=== PATIENT | female | born 1935 | race Caucasian/White ===

== ENCOUNTER 2018-05-03 20:57 | Emergency (ER) | payer MEDICARE, BC ==
[2018-05-03] MEDS ORDERED: Sodium Chloride 0.9% 1,000 ML IV ONE (22:06)
[2018-05-03] MEDS ORDERED: Insulin Regular, Human 100 Units/ML 3 ML Vial IV STA (22:07)
--- NOTE | 2018-05-03 22:13 | EDM.PDOC ---
ED HPI GENERAL MEDICAL PROBLEM - General Chief Complaint: Diabetic Complaint Stated Complaint: BLOOD SUGAR 470 Time Seen by Provider: 05/03/18 21:37 Source of Information: Reports: Patient, Family (2 daughters) History Limitations: Reports: No Limitations - History of Present Illness INITIAL COMMENTS - FREE TEXT/NARRATIVE: The patient states that she is an insulin requiring type II diabetic, and that she ordinarily checks her blood sugar every morning, with a typical blood sugar around 150. She states that she has not had a good diet since February, when her became ill, and that she stopped checking her blood sugars about 2 weeks ago, when he was moved into a ch[facility]. She checked her blood sugar yesterday morning, and found it to be 191, then check it again this evening, finding it to be 470. The patient denies any recent illness, including fever, chills, nausea, vomiting, constipation, diarrhea, abdominal pain, chest pain, palpitations, sore throat, or urinary symptoms. The patient states that she has a chronic cough due to her levothyroxine (actual fact, it is likely due to her benazepril), but that her cough is no worse than usual. The patient has had episodes of hyperglycemia in the past, but no prior DKA. She states that her Lantus insulin was changed to a different long-acting insulin (she does not recall the name) on January 06, but that her blood sugars were still within her normal range up until about 2 weeks ago, when she stopped checking them. The patient's PCP is Dr. Britt. - Related Data Allergies Allergy/AdvReac Type Severity Reaction Status Date / Time No Known Allergies Allergy Verified 05/03/18 21:04 Home Meds: Home Meds Aspirin 81 mg PO DAILY 05/03/18 [History] Benazepril [Lotensin] 20 mg PO DAILY 05/03/18 [History] Calcium Carb & Citrate/Vit D3 [Calcium + D3 ER Tablet] 1 tab PO DAILY 05/03/18 [ History] Hydrochlorothiazide 12.5 mg PO DAILY 05/03/18 [History] Imipramine HCl [Imipramine] 10 mg PO DAILY 05/03/18 [History] Insulin Aspart [NovoLOG] 7 unit SQ ACBREAKFAST 05/03/18 [History] Insulin Aspart [NovoLOG] 10 unit SQ BEDTIME 05/03/18 [History] Insulin Glarg,Human.Rec.Analog [Lantus] 25 unit SUBCUT DAILY 05/03/18 [History] Levothyroxine [Synthroid] 88 mcg PO DAILY 05/03/18 [History] Pravastatin [Pravachol] 20 mg PO DAILY 05/03/18 [History] amLODIPine Besylate [Amlodipine Besylate] 7.5 mg PO DAILY 05/03/18 [History] Past Medical History Cardiovascular History: Reports: High Cholesterol, Hypertension Genitourinary History: Reports: Chronic Renal Insuffiency, Urinary Incontinence (spastic bladder) Musculoskeletal History: Reports: Arthritis, Fracture (left leg) Endocrine/Metabolic History: Reports: Diabetes, Type II, Hypothyroidism - Past Surgical History Female Surgical History: Reports: Hysterectomy Social & Family History - Tobacco Use Smoking Status *Q: Never Smoker - Alcohol Use Alcohol Use History: Yes Alcohol Use Frequency: Rarely - Recreational Drug Use Recreational Drug Use: No - Living Situation & Occupation Living situation: Reports: , Alone Occupation: Retired ED ROS GENERAL - Review of Systems Review Of Systems: ROS reveals no pertinent complaints other than HPI. ED EXAM GENERAL NO PERIP PULSE - Physical Exam Exam: See Below Exam Limited By: No Limitations General Appearance: Alert, WD/WN, No Apparent Distress Eye Exam: Bilateral Eye: Normal Inspection Ears: Normal External Exam, Hearing Grossly Normal Nose: Normal Inspection, No Blood Throat/Mouth: Normal Inspection, Normal Lips, Normal Voice, No Airway Compromise Head: Atraumatic, Normocephalic, Other (Alopecia) Neck: Normal Inspection, Full Range of Motion Respiratory/Chest: No Respiratory Distress, Lungs Clear, Normal Breath Sounds, No Accessory Muscle Use Cardiovascular: Normal Peripheral Pulses, Regular Rate, Rhythm, No Gallop, No JVD, No Murmur, No Rub GI/Abdominal: Normal Bowel Sounds, Soft, Non-Tender, No Organomegaly, No Distention, No Abnormal Bruit, No Mass (Female) Exam: Deferred Rectal (Female) Exam: Deferred Back Exam: Normal Inspection, Full Range of Motion, NT Extremities: Normal Inspection, Normal Range of Motion, Normal Capillary Refill , Other (Trace to 1+ bilateral pretibial edema) Neurological: Alert, Oriented, Normal Cognition, No Motor/Sensory Deficits Psychiatric: Normal Affect Skin Exam: Warm, Dry, Intact, Normal Color, No Rash Course - Vital Signs Last Recorded V/S: Last Vital Signs Temp 36.4 C 05/03/18 21:01 Pulse 87 05/03/18 21:01 Resp 16 05/03/18 21:01 BP 165/73 H 05/03/18 21:01 Pulse Ox 98 05/03/18 21:01 Orthostatic Blood Pressure [ 150/66 Supine] Orthostatic Blood Pressure [ 163/68 Sitting] Orthostatic Blood Pressure [ 164/65 Standing] - Orders/Labs/Meds Orders: Active Orders 24 hr Category Date Time Status Accu Check [Blood Glucose Check, Bedside] [RC] ONETIME Care 05/03/18 22:17 Active Accu Check [Blood Glucose Check, Bedside] [RC] ONETIME Care 05/03/18 23:39 Active EKG Documentation Completion [RC] STAT Care 05/03/18 22:05 Active Insert Urinary Catheter [OM.PC] Q24H Care 05/03/18 23:00 Ordered Orthostatic Vital Signs [RC] STAT Care 05/03/18 22:05 Active Orthostatic Vital Signs [RC] STAT Care 05/03/18 23:01 Active Urinary Catheter Assessment [RC] ASDIRECTED Care 05/03/18 22:59 Active Chest 2V [CR] Stat Exams 05/03/18 22:04 Taken CULTURE URINE [RM] Stat Lab 05/03/18 22:52 Received UA W/MICROSCOPIC [URIN] Stat Lab 05/03/18 22:52 Ordered Labs: Laboratory Tests 05/03/18 05/03/18 05/03/18 Range/Units 22:15 22:15 22:15 WBC 6.15 (3.98-10.04) K/mm3 RBC 4.19 (3.98-5.22) M/mm3 Hgb 12.2 (11.2-15.7) gm/L Hct 37.3 (34.1-44.9) % MCV 89.0 (79.4-94.8) fl MCH 29.1 (25.6-32.2) pg MCHC 32.7 (32.2-35.5) g/dl RDW Std Deviation 43.9 (36.4-46.3) fL Plt Count 194 (182-369) K/mm3 MPV 12.0 (9.4-12.3) fl Neutrophils % (Manual) 64 H (40-60) % Band Neutrophils % 0 (0-10) % Lymphocytes % (Manual) 23 (20-40) % Atypical Lymphs % 0 % Monocytes % (Manual) 10 (2-10) % Eosinophils % (Manual) 2 (0.7-5.8) % Basophils % (Manual) 1 (0.1-1.2) Platelet Estimate Adequate Plt Morphology Comment Normal RBC Morph Comment Normal Sodium 133 L (136-145) mEq/L Potassium 4.5 (3.5-5.1) mEq/L Chloride 98 (98-107) mEq/L Carbon Dioxide 24 (21-32) mEq/L Anion Gap 15.5 H (5-15) BUN 48 H (7-18) mg/dL Creatinine 2.0 H (0.55-1.02) mg/dL Est Cr Clr Drug Dosing 19.60 mL/min Estimated GFR (MDRD) 24 (>60) mL/min BUN/Creatinine Ratio 24.0 H (14-18) Glucose 448 H (83-115) mg/dL POC Glucose (83-110) mg/dL Lactic Acid 1.9 (0.4-2.0) mmol/L Calcium 9.8 (8.5-10.1) mg/dL Magnesium 2.1 (1.8-2.4) mg/dl Total Bilirubin 0.7 (0.2-1.0) mg/dL AST 18 (15-37) U/L ALT 26 (14-59) U/L Alkaline Phosphatase 62 (46-116) U/L Total Protein 7.7 (6.4-8.2) g/dl Albumin 3.9 (3.4-5.0) g/dl Globulin 3.8 gm/dL Albumin/Globulin Ratio 1.0 (1-2) Urine Color (Yellow) Urine Appearance (Clear) Urine pH (5.0-8.0) Ur Specific [place] (1.005-1.030) Urine Protein (Negative) Urine Glucose (UA) (Negative) Urine Ketones (Negative) Urine Occult Blood (Negative) Urine Nitrite (Negative) Urine Bilirubin (Negative) Urine Urobilinogen (0.2-1.0) Ur Leukocyte Esterase (Negative) Urine RBC (0-5) /hpf Urine WBC (0-5) /hpf Urine WBC Clumps (NOT SEEN) /hpf Ur Epithelial Cells (0-5) /hpf Urine Bacteria (FEW) /hpf Urine Mucus (FEW) /hpf Ketones (0.0-0.3) mM 05/03/18 05/03/18 05/03/18 Range/Units 22:15 22:52 23:43 WBC (3.98-10.04) K/mm3 RBC (3.98-5.22) M/mm3 Hgb (11.2-15.7) gm/L Hct (34.1-44.9) % MCV (79.4-94.8) fl MCH (25.6-32.2) pg MCHC (32.2-35.5) g/dl RDW Std Deviation (36.4-46.3) fL Plt Count (182-369) K/mm3 MPV (9.4-12.3) fl Neutrophils % (Manual) (40-60) % Band Neutrophils % (0-10) % Lymphocytes % (Manual) (20-40) % Atypical Lymphs % % Monocytes % (Manual) (2-10) % Eosinophils % (Manual) (0.7-5.8) % Basophils % (Manual) (0.1-1.2) Platelet Estimate Plt Morphology Comment RBC Morph Comment Sodium (136-145) mEq/L Potassium (3.5-5.1) mEq/L Chloride (98-107) mEq/L Carbon Dioxide (21-32) mEq/L Anion Gap (5-15) BUN (7-18) mg/dL Creatinine (0.55-1.02) mg/dL Est Cr Clr Drug Dosing mL/min Estimated GFR (MDRD) (>60) mL/min BUN/Creatinine Ratio (14-18) Glucose (83-115) mg/dL POC Glucose 148 H (83-110) mg/dL Lactic Acid (0.4-2.0) mmol/L Calcium (8.5-10.1) mg/dL Magnesium (1.8-2.4) mg/dl Total Bilirubin (0.2-1.0) mg/dL AST (15-37) U/L ALT (14-59) U/L Alkaline Phosphatase (46-116) U/L Total Protein (6.4-8.2) g/dl Albumin (3.4-5.0) g/dl Globulin gm/dL Albumin/Globulin Ratio (1-2) Urine Color Yellow (Yellow) Urine Appearance Clear (Clear) Urine pH 6.0 (5.0-8.0) Ur Specific [place] 1.010 (1.005-1.030) Urine Protein Negative (Negative) Urine Glucose (UA) 2+ H (Negative) Urine Ketones Negative (Negative) Urine Occult Blood Negative (Negative) Urine Nitrite Negative (Negative) Urine Bilirubin Negative (Negative) Urine Urobilinogen 1.0 (0.2-1.0) Ur Leukocyte Esterase Trace H (Negative) Urine RBC 0-5 (0-5) /hpf Urine WBC 5-10 H (0-5) /hpf Urine WBC Clumps Few (NOT SEEN) /hpf Ur Epithelial Cells 5-10 H (0-5) /hpf Urine Bacteria Few (FEW) /hpf Urine Mucus Not seen (FEW) /hpf Ketones 0.15 (0.0-0.3) mM Meds: Medications Discontinued Medications Generic Name Dose Route Start Last Admin Trade Name Freq PRN Reason Stop Dose Admin Sodium Chloride 1,000 mls @ 999 mls/hr 05/03/18 22:06 05/03/18 22:20 Normal Saline IV 05/03/18 23:06 999 mls/hr ONETIME ONE Administration Insulin Human Regular 10 unit 05/03/18 22:07 05/03/18 22:20 Humulin R IV 05/03/18 22:08 10 units ONETIME STA Administration - Re-Assessments/Exams Free Text/Narrative Re-Assessment/Exam: 05/03/18 22:11 The patient is orthostatic. 1 L of NS was already ordered wide open. We will repeat orthostatics once it has infused. 05/03/18 22:45 2 view chest radiograph appears to be grossly normal. Cardiac silhouette is within normal limits. No pulmonary vascular congestion. No pleural effusions. No focal infiltrate. No pneumothorax. Brassiere fasteners incidentally noted. Formal read per the Radiologist pending. 05/03/18 23:39 Following 1 L NS, the patient is no longer orthostatic. She was given 10 units regular insulin about an hour ago - we will recheck an Accu-Chek. 05/04/18 00:09 Repeat Accu-Chek is 148. The patient's urinalysis is nitrate negative, trace leukocyte esterase, 5-10 WBCs, and few bacteria. This is minimally consistent with a UTI. I have ordered a urine culture. The question is whether or not to treat for UTI. Current guidelines do not recommend routine treatment of asymptomatic bacteriuria, however, with the patient's hyperglycemia, one wonders whether or not that is the cause. I don't believe so, and am therefore not recommending antibiotics at this time. Leave the patient may safely be discharged home. I'm going to recommend that she start checking her blood sugar at least once a day, and follow-up with her PCP, Dr. Britt, this week. 05/04/18 00:17 The above plan was discussed with the patient and her 2 daughters. They are all in agreement. Departure - Departure Time of Disposition: 00:18 Disposition: Home, Self-Care 01 Condition: Good Clinical Impression: Intravascular volume depletion, Hyperglycemia due to type 2 diabetes mellitus, Bacteriuria with pyuria, Chronic kidney disease - Discharge Information Referrals: Yusuf Bernabe MD [Primary Care Provider] - Forms: ED Department Discharge Additional Instructions: You were seen in the emergency room for a blood sugar of 470 at home. Workup in the ER included blood work, a urinalysis, positional blood pressure checks, a chest x-ray, and an ECG. Your workup found that you were intravascularly depleted, likely because of your high blood sugar. You were given IV fluid in the ER, and your numbers normalized. You were given 10 units of regular insulin in the ER, and your blood sugar dropped from 448 to 148. Your urinalysis showed a small number of white blood cells and a few bacteria. A urine culture was sent, however, antibiotics were not recommended at this time. Your chemistry panel showed that you have compromised kidney function, which is likely chronic. The remainder of your workup was unremarkable. As discussed, we recommend that you check your blood sugar at least once, preferably twice a day, and that you resume eating a diabetic diet. Write the blood sugar numbers down, so that you can show them to Dr. Britt. Stay adequately hydrated. Follow-up with your primary care physician, Dr. Britt, this 05/06/2018, not only to review your diabetes medicines, but to check on the urine culture result, as well. If any other problems, please do not hesitate to return to the ER. - My Orders Last 24 Hours: My Active Orders 05/03/18 22:04 Chest 2V [CR] Stat 05/03/18 22:05 EKG Documentation Completion [RC] STAT Orthostatic Vital Signs [RC] STAT 05/03/18 22:17 Accu Check [Blood Glucose Check, Bedside] [RC] ONETIME 05/03/18 22:52 CULTURE URINE [RM] Stat UA W/MICROSCOPIC [URIN] Stat 05/03/18 22:59 Urinary Catheter Assessment [RC] ASDIRECTED 05/03/18 23:00 Insert Urinary Catheter [OM.PC] Q24H 05/03/18 23:01 Orthostatic Vital Signs [RC] STAT 05/03/18 23:39 Accu Check [Blood Glucose Check, Bedside] [RC] ONETIME - Assessment/Plan Last 24 Hours: My Active Orders 05/03/18 22:04 Chest 2V [CR] Stat 05/03/18 22:05 EKG Documentation Completion [RC] STAT Orthostatic Vital Signs [RC] STAT 05/03/18 22:17 Accu Check [Blood Glucose Check, Bedside] [RC] ONETIME 05/03/18 22:52 CULTURE URINE [RM] Stat UA W/MICROSCOPIC [URIN] Stat 05/03/18 22:59 Urinary Catheter Assessment [RC] ASDIRECTED 05/03/18 23:00 Insert Urinary Catheter [OM.PC] Q24H 05/03/18 23:01 Orthostatic Vital Signs [RC] STAT 05/03/18 23:39 Accu Check [Blood Glucose Check, Bedside] [RC] ONETIME
--- NOTE | 2018-05-04 07:03 | CR ---
Chest: Two views of the chest were obtained. Comparison: No prior chest x-ray. Heart size is normal. Tortuous thoracic aorta is seen. Lungs are clear without acute parenchymal change. Mild compression deformities are seen within the mid thoracic spine which appear old. Scattered degenerative change within the spine is seen. Kyphosis is also present. Impression: 1. Incidental findings. Nothing acute is identified on two-view chest x-ray. Diagnostic code #2
== END 2018-05-04 00:45 | disposition home or self-care (01) ==
LOC: JD.ED 20:57
DX: E11.65 Type 2 diabetes mellitus with hyperglycemia (principal); I12.9 Hypertensive chronic kidney disease with stage 1 through stage 4 chronic kidney disease, or unspecified chronic kidney disease; E11.22 Type 2 diabetes mellitus with diabetic chronic kidney disease; N18.9 Chronic kidney disease, unspecified; E86.9 Volume depletion, unspecified; E03.9 Hypothyroidism, unspecified; E78.00 Pure hypercholesterolemia, unspecified; Z79.82 Long term (current) use of aspirin; Z79.4 Long term (current) use of insulin; Z79.899 Other long term (current) drug therapy
CPT/HCPCS: 36415; 71046; 80053; 81001; 82009; 82962; 83605; 83735; 85007; 85027; 87086; 93005; 96361; 96374; 99284; J1815; J7040

== ENCOUNTER 2022-01-14 11:19 | Emergency (ER) | payer MEDICARE, BC ==
[2022-01-14] MEDS ORDERED: Acetaminophen 325 MG Tab PO ONE (12:07)
== END 2022-01-14 16:00 | disposition home or self-care (01) ==
LOC: JD.ED 11:19
DX: S52.202A Unspecified fracture of shaft of left ulna, initial encounter for closed fracture (principal); E78.00 Pure hypercholesterolemia, unspecified; I12.9 Hypertensive chronic kidney disease with stage 1 through stage 4 chronic kidney disease, or unspecified chronic kidney disease; E11.22 Type 2 diabetes mellitus with diabetic chronic kidney disease; N18.9 Chronic kidney disease, unspecified; E03.9 Hypothyroidism, unspecified; E66.9 Obesity, unspecified; Z68.30 Body mass index [BMI] 30.0-30.9, adult; Z79.82 Long term (current) use of aspirin; Z79.4 Long term (current) use of insulin; Z79.899 Other long term (current) drug therapy; W18.30XA Fall on same level, unspecified, initial encounter
CPT/HCPCS: 29125; 73110; 99283; A9270